=== PATIENT | male | born 1940 ===

== ENCOUNTER 2019-03-09 23:15 | Emergency (ER) | payer MEDICARE, MEDICAID ==
--- NOTE | 2019-03-09 23:18 | EDM.PDOC ---
ED HPI GENERAL MEDICAL PROBLEM - General Chief Complaint: General Stated Complaint: Decreased LOC, Hypotension Time Seen by Provider: 03/09/19 23:17 - History of Present Illness INITIAL COMMENTS - FREE TEXT/NARRATIVE: Pt presents from snf, low bp tonight with decreased varinder. Pt with general complaints. - Related Data Allergies Allergy/AdvReac Type Severity Reaction Status Date / Time codeine Allergy Cannot Verified 03/09/19 23:44 Remember morphine Allergy Cannot Verified 03/09/19 23:45 Remember ED ROS GENERAL - Review of Systems Review Of Systems: See Below Constitutional: Reports: Weakness HEENT: Reports: No Symptoms Respiratory: Reports: No Symptoms Cardiovascular: Reports: No Symptoms Endocrine: Reports: No Symptoms GI/Abdominal: Reports: No Symptoms : Reports: No Symptoms Musculoskeletal: Reports: No Symptoms Skin: Reports: No Symptoms Neurological: Reports: No Symptoms Psychiatric: Reports: No Symptoms Hematologic/Lymphatic: Reports: No Symptoms Immunologic: Reports: No Symptoms ED EXAM, GENERAL - Physical Exam Exam: See Below Free Text/Narrative:: PT with wbc at 12.7, lactate 1. PT did respond to IV fluid was more alert per ems, rm spo2 did dip to 88% x ray noted bilateral basilar air apace infiltration will place on z pack and augmentin 875/125 bid x 5 days. Discussed with PCP who will follow in the snf. Pt given 1G rocephin in er. D/C to snf with pcp following tomorrow. Exam Limited By: Altered Mental Status General Appearance: Alert, Mild Distress Eye Exam: Bilateral Eye: PERRL Ears: Normal External Exam, Normal Canal, Hearing Grossly Normal, Normal TMs Nose: Normal Inspection, Normal Mucosa, No Blood Throat/Mouth: Normal Inspection Head: Atraumatic, Normocephalic Neck: Normal Inspection, Supple, Non-Tender, Full Range of Motion Respiratory/Chest: No Respiratory Distress, Lungs Clear, No Accessory Muscle Use , Chest Non-Tender, Other (clear but deminished in the base ) Cardiovascular: Normal Peripheral Pulses, Regular Rate, Rhythm, No Edema, No Gallop, No JVD, No Murmur, No Rub GI/Abdominal: Normal Bowel Sounds, Soft, Non-Tender, No Organomegaly, No Distention, No Abnormal Bruit, No Mass Back Exam: Normal Inspection Neurological: Alert Course - Vital Signs Last Recorded V/S: Last Vital Signs Temp 36.8 C 03/09/19 23:15 Pulse 67 03/09/19 23:15 Resp 16 03/09/19 23:15 BP 120/63 03/09/19 23:15 Pulse Ox 90 L 03/09/19 23:15 - Orders/Labs/Meds Orders: Active Orders 24 hr Category Date Time Status Chest 1V Frontal [CR] Stat Exams 03/09/19 23:23 Ordered CULTURE BLOOD [BC] Stat Lab 03/09/19 23:22 Ordered CULTURE BLOOD [BC] Stat Lab 03/09/19 23:22 Ordered Sodium Chloride 0.9% [Normal Saline] 1,000 ml Med 03/09/19 23:45 Ordered IV ASDIRECTED Blood Culture x2 Reflex Set [OM.PC] Stat Oth 03/09/19 23:22 Ordered Medication Orders Sodium Chloride (Normal Saline) 1,000 mls @ 999 drops/min IV ASDIRECTED JIMMY Last Admin: 03/09/19 23:40 Dose: 999 drops/min Labs: Laboratory Tests 03/09/19 03/09/19 03/09/19 Range/Units 23:40 23:40 23:40 WBC 12.7 H (4.0-10.0) x10^3/uL RBC 3.30 L (4.5-6.0) x10^6/uL Hgb 11.3 L (14.0-18.0) g/dL Hct 34.4 L (40.0-52.0) % MCV 104.2 H (78.0-93.0) fL MCH 34.2 H (26.0-32.0) pg MCHC 32.8 (32.0-36.0) g/dL RDW Coeff of Ramona 12.3 (10.0-15.0) % Plt Count 144 (130-400) x10^3/uL Neut % (Auto) 77.4 (50.0-80.0) % Lymph % (Auto) 12.3 L (25.0-50.0) % [place] % (Auto) 10.0 (2.0-11.0) % Eos % (Auto) 0.2 (0.0-4.0) % Baso % (Auto) 0.1 L (0.2-1.2) % Sodium 147 H (136-145) mmol/L Potassium 4.4 (3.5-5.1) mmol/L Chloride 109 H (98-107) mmol/L Carbon Dioxide 29 (21-32) mmol/L Anion Gap 13.4 (10-20) mmol/L BUN 24 H (7-18) mg/dL Creatinine 1.2 (0.70-1.30) mg/dL Est Cr Clr Drug Dosing TNP Estimated GFR (MDRD) 58 Glucose 120 H (74-106) mg/dL Lactic Acid 1.0 (0.4-2.0) mmol/L Calcium 9.4 (8.5-10.1) mg/dL Corrected Calcium 10.44 H (8.5-10.1) mg/dL Total Bilirubin 0.3 (0.2-1.0) mg/dL AST 13 L (15-37) U/L ALT 14 L (16-63) U/L Alkaline Phosphatase 62 (46-116) U/L Total Protein 6.2 L (6.4-8.2) g/dL Albumin 2.7 L (3.4-5.0) g/dL Globulin 3.5 Albumin/Globulin Ratio 0.77 Urine Color (YELLOW) Urine Appearance (CLEAR) Urine pH (5.0-8.0) Ur Specific [place] Urine Protein (NEGATIVE) mg/dL Urine Glucose (UA) (NEGATIVE) mg/dL Urine Ketones (NEGATIVE) mg/dL Urine Occult Blood (NEGATIVE) Urine Nitrite (NEGATIVE) Urine Bilirubin (NEGATIVE) Urine Urobilinogen (0.2) EU/dL Ur Leukocyte Esterase (NEGATIVE) 03/10/19 Range/Units 00:15 WBC (4.0-10.0) x10^3/uL RBC (4.5-6.0) x10^6/uL Hgb (14.0-18.0) g/dL Hct (40.0-52.0) % MCV (78.0-93.0) fL MCH (26.0-32.0) pg MCHC (32.0-36.0) g/dL RDW Coeff of Ramona (10.0-15.0) % Plt Count (130-400) x10^3/uL Neut % (Auto) (50.0-80.0) % Lymph % (Auto) (25.0-50.0) % [place] % (Auto) (2.0-11.0) % Eos % (Auto) (0.0-4.0) % Baso % (Auto) (0.2-1.2) % Sodium (136-145) mmol/L Potassium (3.5-5.1) mmol/L Chloride (98-107) mmol/L Carbon Dioxide (21-32) mmol/L Anion Gap (10-20) mmol/L BUN (7-18) mg/dL Creatinine (0.70-1.30) mg/dL Est Cr Clr Drug Dosing Estimated GFR (MDRD) Glucose (74-106) mg/dL Lactic Acid (0.4-2.0) mmol/L Calcium (8.5-10.1) mg/dL Corrected Calcium (8.5-10.1) mg/dL Total Bilirubin (0.2-1.0) mg/dL AST (15-37) U/L ALT (16-63) U/L Alkaline Phosphatase (46-116) U/L Total Protein (6.4-8.2) g/dL Albumin (3.4-5.0) g/dL Globulin Albumin/Globulin Ratio Urine Color Dark yellow H (YELLOW) Urine Appearance Slightly cloudy H (CLEAR) Urine pH 7.5 (5.0-8.0) Ur Specific [place] 1.015 Urine Protein Negative (NEGATIVE) mg/dL Urine Glucose (UA) Negative (NEGATIVE) mg/dL Urine Ketones Trace H (NEGATIVE) mg/dL Urine Occult Blood Negative (NEGATIVE) Urine Nitrite Negative (NEGATIVE) Urine Bilirubin Small H (NEGATIVE) Urine Urobilinogen 4.0 H (0.2) EU/dL Ur Leukocyte Esterase Negative (NEGATIVE) Meds: Medications Generic Name Dose Route Start Last Admin Trade Name Freq PRN Reason Stop Dose Admin Sodium Chloride 1,000 mls @ 999 drops/min 03/09/19 23:45 03/09/19 23:40 Normal Saline IV 999 drops/min ASDIRECTED JIMMY Administration Discontinued Medications Generic Name Dose Route Start Last Admin Trade Name Freq PRN Reason Stop Dose Admin Ceftriaxone Sodium 1 gm 03/10/19 00:35 Rocephin IVPUSH 03/10/19 00:36 STAT ONE Departure - Departure Time of Disposition: 00:43 Disposition: DC/Tfer to [facility] 03 Condition: Fair Clinical Impression: Pneumonia - Discharge Information Instructions: Community-Acquired Pneumonia, Adult Forms: ED Department Discharge Sepsis Event Note - Focused Exam Vital Signs: Vital Signs Temp Pulse Resp BP Pulse Ox 03/09/19 23:15 36.8 C 67 16 120/63 90 L Date Exam was Performed: 03/10/19 Time Exam was Performed: 00:39 - My Orders Last 24 Hours: My Active Orders 03/09/19 23:22 CULTURE BLOOD [BC] Stat CULTURE BLOOD [BC] Stat Blood Culture x2 Reflex Set [OM.PC] Stat 03/09/19 23:23 Chest 1V Frontal [CR] Stat 03/09/19 23:45 Sodium Chloride 0.9% [Normal Saline] 1,000 ml IV ASDIRECTED - Assessment/Plan Last 24 Hours: My Active Orders 03/09/19 23:22 CULTURE BLOOD [BC] Stat CULTURE BLOOD [BC] Stat Blood Culture x2 Reflex Set [OM.PC] Stat 03/09/19 23:23 Chest 1V Frontal [CR] Stat 03/09/19 23:45 Sodium Chloride 0.9% [Normal Saline] 1,000 ml IV ASDIRECTED
[2019-03-09] MEDS ORDERED: Sodium Chloride 0.9% 1,000 ML IV SCH (23:45)
[2019-03-10 00:13] LABS: CHLORIDE,CL 109 mmol/L (98-107); SODIUM,NA 147 mmol/L (136-145)
[2019-03-10 00:16] LABS: ANION GAP 13.4 mmol/L (10-20)
[2019-03-10] MEDS ORDERED: cefTRIAXone 1 GM Vial IVPUSH ONE (00:35)
--- NOTE | 2019-03-10 07:50 | CR ---
[id number] RAD/RAD Chest PA or AP 1V EXAM: RAD Chest PA or AP 1V INDICATION: DECREASED DARRELL. COMPARISON: March 09, 2019. DISCUSSION: Cardiomediastinal silhouette is normal in size and contour. Bibasilar pulmonary infiltrates, left greater than right. No pneumothorax or pleural effusion. IMPRESSION: Bibasilar pulmonary infiltrates, left greater than right. Edmund Murphy DO 03/10/19 0749 Thank you for allowing us to participate in the care of your patient.
== END 2019-03-10 01:08 ==
LOC: VM.ED 23:15
DX: J18.9 Pneumonia, unspecified organism (principal); Z88.5 Allergy status to narcotic agent
CPT/HCPCS: 36415; 71045; 80053; 81003; 83605; 85025; 87040; 94760; 96361; 96374; 99283; 99285; J0696; J7030